=== PATIENT | female | born 1995 | race Two or more races ===

== ENCOUNTER 2021-11-11 21:41 | Emergency (ER) | payer SELFPAY ==
[~2021-11-11] VITALS: Ht 144.8 cm; Wt 67.6 kg
[2021-11-11 22:24] LABS: Basophils # (auto) 0.1 10 ^3/uL (0-0.2); Basophils % (auto) 0.7 % (0.0-2.0); Eosinophils # (auto) 0.1 10 ^3/uL (0-0.8); Eosinophils % (auto) 0.9 % (0.0-7.0); Hematocrit 30.4 % (36.0-46.0); Hemoglobin 10.2 g/dL (12.2-16.2); Lymphocytes # (auto) 2.4 10 ^3/uL (0.4-5.4); Mean Corpuscular Hemoglobin 28.8 pg (28.0-32.0); Mean Corpuscular Hgb Conc. 33.6 g/dL (32.0-36.0); Mean Corpuscular Volume 85.5 fL (80.0-100.0); Monocytes # (auto) 0.5 10 ^3/uL (0-1.3); Monocytes % (auto) 6.6 % (0.0-12.0); Neutrophils # (auto) 5.1 10 ^3/uL (1.6-8.6); Neutrophils % (auto) 62.8 % (37.0-80.0); Red Blood Cells 3.55 10^6/uL (4.0-5.20); Red Cell Distribution Width 13.1 % (11.8-14.3); White Blood Cell 8.1 10^3/uL (4.4-10.8)
[2021-11-11 22:44] LABS: Albumin 3.2 g/dL (3.4-5.0); BUN/Creatinine Ratio 14.8; Calcium 8.1 mg/dL (8.5-10.1); Potassium 3.5 mmol/L (3.5-5.1)
[2021-11-11 22:46] LABS: Bilirubin, Total 0.3 mg/dL (0.2-1.0); Total Protein 6.5 g/dL (6.4-8.2)
[2021-11-11] MEDS ORDERED: SODIUM CHLORIDE 0.9% 1,000 ML IV ONE (23:15)
[2021-11-12 02:37] VITALS: BP 101/56
== END 2021-11-12 03:22 | disposition home or self-care (01) ==
LOC: ER 21:41
DX: O20.0 Threatened abortion (principal); Z3A.01 Less than 8 weeks gestation of pregnancy
CPT/HCPCS: 36415; 76801; 76817; 80053; 84702; 85025; 86850; 86900; 86901; 96360; 99284; J7030

== ENCOUNTER 2023-04-22 12:50 | Observation (INO) | payer MEDICAID | END 2023-04-22 15:15 | disposition home or self-care (01) | LOC: LDRP 12:50 | PROVIDERS: ADMIT Obstetrics & Gynecology; ATTEND Obstetrics & Gynecology | DX: O36.1930 Maternal care for other isoimmunization, third trimester, not applicable or unspecified (principal); Z3A.31 31 weeks gestation of pregnancy | CPT/HCPCS: 59025; 81002; 94760; G0378 ==

== ENCOUNTER 2023-04-29 09:24 | Observation (INO) | payer MEDICAID | END 2023-04-29 12:14 | disposition home or self-care (01) | LOC: UNDOADMOB 09:56 → LDRP 09:56 → UNDODISOB 12:14 | PROVIDERS: ADMIT Obstetrics & Gynecology; ATTEND Obstetrics & Gynecology | DX: O36.1930 Maternal care for other isoimmunization, third trimester, not applicable or unspecified (principal); Z3A.32 32 weeks gestation of pregnancy | CPT/HCPCS: 59025; 76818; 81002; 82948 ==

== ENCOUNTER 2023-05-04 19:06 | Observation (INO) | payer MEDICAID ==
[2023-05-04] MEDS ORDERED: PREN-96 OR (20:40)
== END 2023-05-04 21:21 | disposition home or self-care (01) ==
LOC: LDRP 19:06
PROVIDERS: ADMIT Obstetrics & Gynecology; ATTEND Obstetrics & Gynecology
DX: O26.853 Spotting complicating pregnancy, third trimester (principal); Z3A.33 33 weeks gestation of pregnancy
CPT/HCPCS: 59025; 76818; 94760; G0378

== ENCOUNTER 2023-05-06 09:48 | Observation (INO) | payer MEDICAID ==
[~2023-05-06] VITALS: Ht 152.4 cm; Wt 72.6 kg
[~2023-05-06 09:48] MED LIST: PREN-96 OR
== END 2023-05-06 13:11 | disposition home or self-care (01) ==
LOC: UNDOADMOB 11:38 → LDRP 11:38 → UNDODISOB 13:11
PROVIDERS: ADMIT Obstetrics & Gynecology; ATTEND Obstetrics & Gynecology
DX: O36.1930 Maternal care for other isoimmunization, third trimester, not applicable or unspecified (principal); Z3A.33 33 weeks gestation of pregnancy
CPT/HCPCS: 59025; 76818; 81002; 94760; G0378

== ENCOUNTER 2023-05-09 05:24 | Observation (INO) | payer MEDICAID ==
[~2023-05-09] VITALS: Ht 152.4 cm; Wt 87.6 kg
[2023-05-09] MEDS ORDERED: TERBUTALINE SULFATE 1 MG/ML 1ML VIAL SC ONE (05:49)
[2023-05-09] MEDS ORDERED: MAGNESIUM SULFATE 40MG/ML 1,000 ML IV SCH (06:00)
[2023-05-09] MEDS ORDERED: AMPICILLIN SOD 2GM INJ 2 GM in SODIUM CHL 0.9% 100 ML IV ONE (06:00)
[2023-05-09] MEDS ORDERED: LACTATED RINGER'S 1,000 ML IV SCH (06:00)
[2023-05-09] MEDS ORDERED: BETAMETHASONE ACET (30mg/5ml) 5ml Vial 6mg/ml IM SCH (06:00)
[2023-05-09] MEDS ORDERED: MAGNESIUM SULFATE 100 ML IV ONE (06:00)
[2023-05-09] MEDS ORDERED: LACTATED RINGER'S 1,000 ML IV ONE (06:00)
[2023-05-09] MEDS ORDERED: TERBUTALINE SULFATE 1 MG/ML 1ML VIAL SC SCH (06:00)
[2023-05-09] MEDS ORDERED: ONDANSETRON HCL 4 MG/2 ML VIAL IV PRN (06:45)
[2023-05-09 06:51] LABS: Fern Testing Positive
[2023-05-09] MEDS ORDERED: AZITHROMYCIN 250 MG TAB PO ONE (07:00)
[2023-05-09 07:10] LABS: Basophils # (auto) 0.1 10 ^3/uL (0-0.2); Basophils % (auto) 0.4 % (0.0-2.0); Eosinophils # (auto) 0.1 10 ^3/uL (0-0.8); Eosinophils % (auto) 0.7 % (0.0-7.0); Hematocrit 33.9 % (36.0-46.0); Hemoglobin 11.4 g/dL (12.2-16.2); Lymphocytes # (auto) 3.5 10 ^3/uL (0.4-5.4); Lymphocytes % (auto) 27.1 % (10.0-50.0); Mean Corpuscular Hemoglobin 28.8 pg (28.0-32.0); Mean Corpuscular Hgb Conc. 33.5 g/dL (32.0-36.0); Monocytes # (auto) 0.7 10 ^3/uL (0-1.3); Monocytes % (auto) 5.3 % (0.0-12.0); Neutrophils # (auto) 8.7 10 ^3/uL (1.6-8.6); Neutrophils % (auto) 66.5 % (37.0-80.0); Nucleated Red Blood Cells % 0.1 %; Red Blood Cells 3.94 10^6/uL (4.0-5.20)
[2023-05-09 07:12] LABS: INR 0.9 (0.9-1.15); Partial Thromboplastin Time 25.8 SEC (24.5-34.5); Prothrombin Time 9.5 sec (9.3-11.8)
[2023-05-09 07:45] LABS: Albumin 2.4 g/dL (3.4-5.0); Calcium 8.8 mg/dL (8.5-10.1); Potassium 3.6 mmol/L (3.5-5.1)
[2023-05-09 07:48] LABS: BUN/Creatinine Ratio 8.8 (10.0-20.0)
[2023-05-09 07:50] LABS: Bilirubin, Total 0.3 mg/dL (0.2-1.0); Total Protein 6.9 g/dL (6.4-8.2)
== END 2023-05-09 08:00 ==
LOC: LDRP 05:24
PROVIDERS: ADMIT Obstetrics & Gynecology; ATTEND Obstetrics & Gynecology
DX: O42.913 Preterm premature rupture of membranes, unspecified as to length of time between rupture and onset of labor, third trimester (principal); O62.9 Abnormality of forces of labor, unspecified; Z3A.33 33 weeks gestation of pregnancy; Z98.51 Tubal ligation status
CPT/HCPCS: 36415; 59025; 76805; 80053; 81002; 84112; 85025; 85610; 85730; 94760; 96365; 96366; 96368; 96372; G0378; J0290; J0702; J2405; J3105; J3475; Q0114; 96360; 96375